=== PATIENT | female | born 1970 | race Caucasian/White ===

== ENCOUNTER → 2016-09-27 | Outpatient (CLI) | payer OTHER | LOC: KOH-I 15:33 | DX: M54.5 Low back pain (principal); M51.24 Other intervertebral disc displacement, thoracic region; M51.36 Other intervertebral disc degeneration, lumbar region; M48.04 Spinal stenosis, thoracic region | CPT/HCPCS: 72148 ==

== ENCOUNTER → 2020-06-07 | Outpatient (CLI) | payer OTHER ==
[~2020-06-07] MED LIST: ALLEGRA-D 12 H1 EACH PO; BENZONATATE200 MG PO; BUTALB-ACETAMI1 EAC1 PO; COMBIVENT0.074 GM/I INH; GABAPENTIN300 MG PO; KLONOPIN TAB 00.5 MG PO; MELATONIN3 MG PO; NORCO 5-325 TA1 EACH PO; OXYCODON-ACETA1 EAC1 PO; PERCOCET 5-3251 EACH PO; PERCOCET 5/325 T1 EA PO; PERCOCET 7.5-31 EACH PO; PROTONIX40 MG PO; SYMBICORT 16010.2 GM INH; SYNTHROID88 MCG PO; VITAMIN D250000 UNIT PO
== END ==
LOC: KOH-I 13:00
DX: M47.812 Spondylosis without myelopathy or radiculopathy, cervical region (principal); M43.12 Spondylolisthesis, cervical region; M25.78 Osteophyte, vertebrae; M48.02 Spinal stenosis, cervical region
CPT/HCPCS: 72125

== ENCOUNTER 2020-06-28 01:04 | Emergency (ER) | payer OTHER | END 2020-06-28 04:30 | disposition home or self-care (01) | LOC: ER1 01:04 | DX: S93.401A Sprain of unspecified ligament of right ankle, initial encounter (principal); S76.011A Strain of muscle, fascia and tendon of right hip, initial encounter; J44.9 Chronic obstructive pulmonary disease, unspecified; E03.9 Hypothyroidism, unspecified; Z88.5 Allergy status to narcotic agent; Z88.8 Allergy status to other drugs, medicaments and biological substances; X50.1XXA Overexertion from prolonged static or awkward postures, initial encounter; Y92.512 Supermarket, store or market as the place of occurrence of the external cause | CPT/HCPCS: 73502; 73610; 99283 ==

== ENCOUNTER → 2020-10-31 | Outpatient (CLI) | payer OTHER ==
[~2020-10-31] MED LIST changes: +ALLEGRA-D 24 H1 EACH PO; +BUTALBITAL/APAP/CAFF PO; +COMBIVENT RESPIM4 GM INH; +LEVOTHYROXINE88 MC1 PO; +NEURONTIN600 MG PO; +PHENERGAN 25 MG25 M1 PO; +VENTOLIN HFA 66.7 GM INH; +VITAMIN D21250 MCG PO; +ZANAFLEX4 MG PO
== END ==
LOC: KOH-I 09:49
DX: M79.672 Pain in left foot (principal); T81.89XA Other complications of procedures, not elsewhere classified, initial encounter
CPT/HCPCS: 73630

== ENCOUNTER → 2020-11-22 | Outpatient (CLI) | payer OTHER | LOC: OPSV2 12:00 | DX: Z01.818 Encounter for other preprocedural examination (principal) | CPT/HCPCS: 71046 ==

== ENCOUNTER → 2020-11-25 | Day surgery (SDC) | payer OTHER ==
[~2020-11-25] VITALS: Ht 175.3 cm; Wt 80.3 kg
== END | disposition home or self-care (01) ==
LOC: OR 08:53
DX: T84.84XA Pain due to internal orthopedic prosthetic devices, implants and grafts, initial encounter (principal); G89.18 Other acute postprocedural pain; M21.612 Bunion of left foot; M21.6X2 Other acquired deformities of left foot; M20.42 Other hammer toe(s) (acquired), left foot; Z20.822 Contact with and (suspected) exposure to COVID-19; Z87.891 Personal history of nicotine dependence; J44.9 Chronic obstructive pulmonary disease, unspecified; F41.9 Anxiety disorder, unspecified; F32.9 Major depressive disorder, single episode, unspecified; Z88.5 Allergy status to narcotic agent; Z96.652 Presence of left artificial knee joint; M89.9 Disorder of bone, unspecified
CPT/HCPCS: 73630; 76000; C1713; J0171; J0690; J1100; J2001; J2270; J2405; J2704; J2795; J3010; J3370; J7120; Q4133

== ENCOUNTER → 2020-12-22 | Outpatient (CLI) | payer OTHER | LOC: KOH-I 09:49 | DX: M25.572 Pain in left ankle and joints of left foot (principal); M19.072 Primary osteoarthritis, left ankle and foot; Z89.422 Acquired absence of other left toe(s) | CPT/HCPCS: 73610; 73630 ==

== ENCOUNTER → 2021-01-12 | Outpatient (CLI) | payer OTHER | LOC: KOH-I 09:32 | DX: M79.672 Pain in left foot (principal) | CPT/HCPCS: 73630 ==

== ENCOUNTER → 2021-01-26 | Outpatient (CLI) | payer OTHER | LOC: KOH-I 10:10 | DX: M79.672 Pain in left foot (principal); M19.072 Primary osteoarthritis, left ankle and foot | CPT/HCPCS: 73630 ==

== ENCOUNTER → 2021-03-07 | Outpatient (CLI) | payer OTHER | LOC: KOH-I 09:46 | DX: M25.572 Pain in left ankle and joints of left foot (principal) | CPT/HCPCS: 73630 ==

== ENCOUNTER → 2021-05-18 | Outpatient (CLI) | payer OTHER | LOC: KOH-I 10:28 | DX: M79.672 Pain in left foot (principal); Z98.890 Other specified postprocedural states | CPT/HCPCS: 73630 ==

== ENCOUNTER → 2021-06-01 | Outpatient (CLI) | payer OTHER | LOC: KOH-I 14:04 | DX: M25.572 Pain in left ankle and joints of left foot (principal) | CPT/HCPCS: 73610; 73630 ==